=== PATIENT | male | born 2000 | race Caucasian/White ===

== ENCOUNTER 2023-02-12 17:51 | Emergency (ER) | payer OTHER, SELFPAY ==
[2023-02-12 18:00] VITALS: BP 162/84; PULSE 89; RESP 20; TEMP 37; O2SAT 99
--- NOTE | 2023-02-12 18:06 | ED.UPPEXIN ---
HPI - Extremity Injury (Upper) General Chief Complaint: Extremity Injury, Upper Stated Complaint: Swelling in right hand Time Seen by Provider: 02/12/23 18:11 Mode of arrival: ambulatory History of Present Illness HPI narrative: PATIENT PRESENTS WITH INJURY TO HIS RIGHT HAND. PATIENT REPORTS HE PULLED A SPLINTER OUT OF HIS RIGHT RING FINGER YESTERDAY AND PUNTURED HIS FINGER NAIL WITH A NAIL. UP TO DATE ON TDAP. SOME SWELLING AND TENDERNESS TO FINGER NO STREAKING AND NO DRAINAGE. Related Data Allergies Allergy/AdvReac Type Severity Reaction Status Date / Time No Known Allergies Allergy Verified 02/12/23 18:01 Review of Systems Review of Systems: CONSTITUTIONAL: DENIES FEVER, CHILLS, OR SWEATS. EYES: DENIES VISUAL CHANGES, REDNESS, OR DISCHARGE. ENT: DENIES RHINORRHEA, CONGESTION, SORE THROAT, OR OTALGIA. CARDIOVASCULAR: DENIES CHEST PAIN, PALPITATIONS, OR EDEMA. RESPIRATORY: DENIES COUGH OR DYSPNEA. GASTROINTESTINAL: DENIES ABDOMINAL PAIN, NAUSEA, VOMITING, OR DIARRHEA. GENITOURINARY: DENIES DYSURIA OR HEMATURIA. SKIN: DENIES RASH OR ITCHING. MUSCULOSKELETAL: DENIES BACK PAIN, JOINT PAIN, OR MYALGIA. NEUROLOGIC: DENIES HEADACHE, NUMBNESS, OR WEAKNESS. PSYCHIATRIC: DENIES ANXIETY OR DEPRESSION. PMFSH Comments AT TIME OF SIGNATURE, AGREE WITH NURSING PAST MEDICAL, SURGICAL, SOCIAL AND FAMILY HISTORY. THERE IS NO RELEVANT FAMILY HISTORY PERTINENT TO THE PRESENTING COMPLAINT Exam Narrative: GENERAL: WELL-APPEARING, WELL-NOURISHED, AND IN NO ACUTE DISTRESS. HEAD: NORMOCEPHALIC, ATRAUMATIC. EYES: PERRLA AND EOMI. ENT: NARES CLEAR, NO RHINORRHEA OR EPISTAXIS. MUCOUS MEMBRANES MOIST. NECK: SUPPLE. CHEST: CLEAR TO AUSCULTATION. NO RESPIRATORY DISTRESS. HEART: REGULAR RATE AND RHYTHM. NO MURMUR HEARD. NORMAL PERIPHERAL PULSES. ABDOMEN: SOFT, NONTENDER, NONDISTENDED, NORMAL ACTIVE BOWEL SOUNDS. EXTREMITIES: NORMAL RANGE OF MOTION. NO EDEMA.GENERAL: WELL-APPEARING, WELL-NOURISHED, AND IN NO ACUTE DISTRESS. HAND EXAM - SKIN INTACT, NO LACERATION, NO SWELLING, NO ERYTHEMA, NORMAL DIGIT CASCADE WITH FLEXION OF FINGERS, MEDIAN NERVE, ULNAR NERVE, RADIAL NERVE IS INTACT. NORMAL SENSATION OF EACH SIDE OF EACH FINGER, CAN PERFORM `OK? SIGN, `CROSS OVER FINGER TEST OF INDEX AND MIDDLE FINGERS? AND `THUMBS UP? SIGN, NORMAL THUMB OPPOSITION, NO SCISSORING. GOOD CAPILLARY REFILL AND RADIAL PULSE. NORMAL FLEXION AND EXTENSION OF FINGERS AND WRIST. NORMAL SUPINATION AT WRIST. NORMAL FOREARM AND ELBOW EXAM.REDNESS AND IRRITATION TO RIGHT RING FINGER CONSISTENT WITH CELLULLITIS. PUNCTURE WOUND TO RIGHT FINGER NAIL. HEAD: NORMOCEPHALIC, ATRAUMATIC. EYES: PERRLA AND EOMI. ENT: NARES CLEAR, NO RHINORRHEA OR EPISTAXIS. MUCOUS MEMBRANES MOIST. NECK: SUPPLE. CHEST: CLEAR TO AUSCULTATION. NO RESPIRATORY DISTRESS. HEART: REGULAR RATE AND RHYTHM. NO MURMUR HEARD. NORMAL PERIPHERAL PULSES. ABDOMEN: SOFT, NONTENDER, NONDISTENDED, NORMAL ACTIVE BOWEL SOUNDS. EXTREMITIES: NORMAL RANGE OF MOTION. NO EDEMA. SKIN: WARM, DRY, NO RASH. NEURO: NO FOCAL DEFICITS. ALERT AND ORIENTED X3. CAMACHO COMA SCALE EYE OPENING: SPONTANEOUS 4 CAMACHO COMA SCALE MOTOR: OBEYS COMMANDS 6 CAMACHO COMA SCALE VERBAL: ORIENTED 5 CAMACHO COMA SCALE TOTAL 15 SKIN: WARM, DRY, NO RASH. NEURO: NO FOCAL DEFICITS. ALERT AND ORIENTED X3. CAMACHO COMA SCALE EYE OPENING: SPONTANEOUS 4 CAMACHO COMA SCALE MOTOR: OBEYS COMMANDS 6 CAMACHO COMA SCALE VERBAL: ORIENTED 5 CAMACHO COMA SCALE TOTAL 15 Course Course Level of Care: Express Care Visit Vital Signs Vital signs: Vital Signs Temperature 37.0 C 02/12/23 18:00 Pulse Rate 89 02/12/23 18:00 Respiratory Rate 20 02/12/23 18:00 Blood Pressure 162/84 H 02/12/23 18:00 Pulse Oximetry 99 02/12/23 18:00 Oxygen Delivery Room Air 02/12/23 18:00 Temperature 37.0 C 02/12/23 18:00 Pulse Rate 89 02/12/23 18:00 Respiratory Rate 20 02/12/23 18:00 Blood Pressure 162/84 H 02/12/23 18:00 Pulse Oximetry 99 02/12
== END 2023-02-12 18:13 | disposition home or self-care (01) ==
PROVIDERS: Emergency Provider Nurse Practitioner Family
DX: L03.113 Cellulitis of right upper limb (principal)
CPT/HCPCS: 99213; G0463

== ENCOUNTER 2024-10-20 11:51 | Emergency (ER) | payer OTHER, SELFPAY ==
[2024-10-20 11:58] VITALS: BP 144/85; PULSE 82; RESP 20; TEMP 37.1; O2SAT 100
--- NOTE | 2024-10-20 12:05 | ED.EAR ---
HPI - Ear Problem General Chief complaint: Ear Stated complaint: Ear pain History of Present Illness HPI Narrative: Patient presents with right ear pain. Patient denies any fever no body aches no drainage from the ear. Patient states it feels muffled at times and has had no recent ear infections. Related Data Allergies Allergy/AdvReac Type Severity Reaction Status Date / Time No Known Allergies Allergy Verified 02/12/23 18:01 Review of Systems Review of Systems: CONSTITUTIONAL: Denies chills, or sweats. Reports fever and generalized body aches EYES: Denies visual changes, redness, or discharge. ENT: Denies otalgia. Reports nasal congestion runny nose and sore throat CARDIOVASCULAR: Denies chest pain, palpitations, or edema. RESPIRATORY: Denies dyspnea. Reports occasional cough GASTROINTESTINAL: Denies abdominal pain, nausea, vomiting, or diarrhea. GENITOURINARY: Denies dysuria or hematuria. SKIN: Denies rash or itching. MUSCULOSKELETAL: Denies back pain, joint pain, or myalgia. Reports generalized body aches NEUROLOGIC: Denies headache, numbness, or weakness. PSYCHIATRIC: Denies anxiety or depression. Exam Narrative: The patient is a well-developed, well-nourished in no acute distress. SKIN: Skin is warm and dry without erythema, swelling or exudate. There is good turgor. No tenting. HEAD: Atraumatic. Normocephalic. No temporal or scalp tenderness. EYES: Moist and bright. Sclera and conjunctivae normal. No discharge. PERRLA. Extraocular motions intact. Gross visual acuity intact. EARS: Pinna is normal shape and contour. Clear external auditory canals. TM pearly vasquez with good cone of light, no erythema or suppuration. Bilateral cerumen noted no gross hearing deficit. Mild erythema to right canal with bulging to right TM NOSE: pink, moist mucosa with good air movement. Clear rhinorrhea without nasal flaring. Septum midline. Mouth: moist mucous membranes. THROAT; mild erythema noted to posterior oropharynx with moderate postnasal drainage. Without exudate or ulceration.. Uvula midline. Normal movement of soft palate. NECK: Supple and nontender with full range of motion without discomfort. No meningeal signs. LUNGS: Equal and bilateral breath sounds without wheezes, rales or rhonchi. CHEST: The chest wall is without retractions or use of accessory muscles. HEART: Has a regular rate and rhythm without murmur, gallops, click or rub. ABDOMEN: Soft, nontender with positive active bowel sounds. No rebound tenderness. EXTREMITIES: Without cyanosis, clubbing or edema. Equal 2+ distal pulses and 2 second capillary refill noted. NEUROLOGIC: alert, active, . The patient moves all extremities with normal muscle strength. Normal muscle tone is noted. Normal coordination is noted. NO focal neurological findings noted. Course Course Level of Care: Express Care Visit Vital Signs Vital signs: Vital Signs Temperature 37.1 C 10/20/24 11:58 Pulse Rate 82 10/20/24 11:58 Respiratory Rate 20 10/20/24 11:58 Blood Pressure 144/85 H 10/20/24 11:58 Pulse Oximetry 100 10/20/24 11:58 Oxygen Delivery Room Air 10/20/24 11:58 Temperature 37.1 C 10/20/24 11:58 Pulse Rate 82 10/20/24 11:58 Respiratory Rate 20 10/20/24 11:58 Blood Pressure 144/85 H 10/20/24 11:58 Pulse Oximetry 100 10/20/24 11:58 Oxygen Delivery Room Air 10/20/24 11:58 Please EDWARDO schedule a followup visit with your personal physician for further evaluation and treatment. Including recheck and discussion of your blood pressure. If your symptoms persist, change or worsen significantly before you can contact your personal physician then please, without delay, go to the emergency department for further evaluation Medical Decision Making Vital Signs Vital Signs: Vital Signs Temperature 37.1 C 10/20/24 11:58 Pulse Rate 82 10/20/24 11:58 Respiratory Rate 20 10/20/24 11:58 Blood Pressure 144/85 H 10/20/24 11:58 Pulse Oximetry 100 10/20/24 11:58 Oxygen Delivery Room Air 10/20/24 11:58 Temperature 37.1 C 10/20/24 11:58 Pulse Rate 82 10/20/24 11:58 Respiratory Rate 20 10/20/24 11:58 Blood Pressure 144/85 H 10/20/24 11:58 Pulse Oximetry 100 10/20/24 11:58 Oxygen Delivery Room Air 10/20/24 11:58 Please EDWARDO schedule a followup visit with your personal physician for further evaluation and treatment. Including recheck and discussion of your blood pressure. If your symptoms persist, change or worsen significantly before you can contact your personal physician then please, without delay, go to the emergency department for further evaluation Discharge Plan Discharge Clinical Impression: Otitis media Patient Disposition: Home, Self-Care Condition: Stable Instructions: Antibiotic Form Additional Instructions: INUSITIS, Abx Tx, Drink plenty of water (with the goal to keep your urine clear to light yellow) and get plenty of rest (8-9 hours a night).You may try saline rinses (Ellis/Simply Saline/Neti Pot), Nakul's Vaporub, or a humidifier/hot showers for your nose symptoms. You may also try taking an anti-histamine during the day (such as Tracey/Claritin/Zyrtec) and Benadryl at night as dosed on the package regularly for the next 1-2 weeks to help dry passageways to decrease drainage and symptoms. You may try Delsym or Mucinex DM as dosed on the package, or cough drops for your cough. You may try Chloraseptic spray as dosed on the bottle, honey 2-3 tablespoons 2-3 times a day, cough drops/peppermints for your sore throat over the next week. , Discussed with patient if worsening symptoms or worsening pain follow up with primary care physician -If you have any worsening of symptoms or any other concerns please go to the ED immediately. Patient Language: Tongan Prescriptions: New fluticasone propionate [Children's Flonase Allergy Rlf] 50 mcg/actuation spray,suspension 1 spray NASAL Q12H Qty: 9.9 0RF Rx Instructions: administer into each nostril amoxicillin-pot clavulanate 875-125 mg tablet 1 tablet PO Q12H 7 Days Qty: 14 0RF Follow-up/Referrals: PHYSICIAN,REGISTERED APPRAISER [Primary Care Provider] -
== END 2024-10-20 12:12 | disposition home or self-care (01) ==
PROVIDERS: Emergency Provider Nurse Practitioner Family
DX: H66.91 Otitis media, unspecified, right ear (principal)
CPT/HCPCS: 99213; G0463

== ENCOUNTER 2025-03-14 18:14 | Emergency (ER) | payer OTHER, SELFPAY ==
[2025-03-14 18:30] VITALS: BP 149/92; PULSE 84; RESP 20; TEMP 36.7; O2SAT 100
--- NOTE | 2025-03-14 20:17 | ED.GENADULT ---
HPI - General Adult General Chief complaint: Burn/Smoke Inhalation Stated complaint: Sun Burn on Feet/Ankles Swollen Time Seen by Provider: 03/14/25 20:00 Source: patient, RN notes reviewed and old records reviewed Mode of arrival: ambulatory Limitations: no limitations History of Present Illness HPI narrative: 24 year old male who presents to express care with complaints of acute sunburn to the top of his feet, legs and feet which occurred 2 days ago when he was fishing in [place]. Patient reports that he noted yesterday that he feet and lower legs seemed to be swelling and they are worse today. He states that he has been using Aloe ointment on his sunburn. Patient reports no nausea or vomiting, no headache or any dizziness, has not noted any fevers. MD complaint: acute sunburn with some swelling to legs and feet Onset (ago): day(s) (day 3 of symptoms) Location: face, left, right and lower extremity (tops of feet) Severity: moderate Severity scale (1-10): 3 Quality: aching and dull Pain Consistency: constant Treatments prior to arrival: other (aloe ointment) Related Data Home Medications ?Medication ?Instructions ?Recorded ?Confirmed ?Last Taken ?Type No Home Medications 03/14/25 03/14/25 Unknown History Allergies Allergy/AdvReac Type Severity Reaction Status Date / Time No Known Allergies Allergy Verified 03/14/25 18:59 Review of Systems Review of Systems: CONSTITUTIONAL: Denies fever, chills, or sweats. EYES: Denies visual changes, redness, or discharge. ENT: Denies rhinorrhea, congestion, sore throat, or otalgia. CARDIOVASCULAR: Denies chest pain, palpitations, or edema. RESPIRATORY: Denies cough or dyspnea. GASTROINTESTINAL: Denies abdominal pain, nausea, vomiting, or diarrhea. GENITOURINARY: Denies dysuria or hematuria. SKIN: Denies rash or itching. Positive for sunburn to face legs and tops of feet after fishing on Tuesday concerned with swelling to legs and tops of feet for past 2 days. No blisters noted to skin but red in color on legs, face and tops of feet with warmth to skin noted MUSCULOSKELETAL: Denies back pain, joint pain, or myalgia. NEUROLOGIC: Denies headache, numbness, or weakness. PSYCHIATRIC: Denies anxiety or depression. All systems reviewed & are unremarkable except as noted in HPI and below PMFSH Past Medical History Medical History (Updated 03/17/25 @ 19:37 by Nancy Perez NP) Cellulitis of index finger Ear infection Social History Social History (Updated 03/17/25 @ 19:37 by Nancy Perez NP) Smoking status: Current every day smoker Tobacco type: e-cigarettes/vaping Alcohol use details: social Substance use type: does not use Living arrangements: with family Gender identity (if verbalized by the patient): Male Comments At time of signature, agree with nursing past medical, surgical, social and family history. There is no relevant family history pertinent to the presenting complaint Exam Narrative: GENERAL: Well-appearing, well-nourished, and in no acute distress. HEAD: Normocephalic, atraumatic. EYES: PERRLA and EOMI. ENT: Nares clear, no rhinorrhea or epistaxis. Mucous membranes moist.TM's normal throat pink with no swelling NECK: Supple. no lymphadenopathy CHEST: Clear to auscultation. No respiratory distress. SAO2 100% on room air HEART: Regular rate and rhythm. No murmur heard. Normal peripheral pulses. ABDOMEN: Soft, nontender, nondistended, normal active bowel sounds.no nausea or vomiting EXTREMITIES: Normal range of motion. trace edema to lower legs and to feet nonpitting with strong pedal pulses present, SKIN: Warm, dry, no rash. Positive for sunburn 1st degree to face and to lower extremities and top of feet with dull aching pain. NEURO: No focal deficits. Alert and oriented, denies any dizziness or any headache pain Course Course Emergency Course: Patient is aware of diagnosis, understands and agrees to treatment plan.? Anticipatory guidance given.? Patient agrees to follow-up as directed and is aware of reasons to seek care at the emergency department. Portions of this record may have been created with voice recognition software Level of Care: Express Care Visit Vital Signs Vital signs: Vital Signs Temperature 36.7 C 03/14/25 18:30 Pulse Rate 84 03/14/25 18:30 Respiratory Rate 20 03/14/25 18:30 Blood Pressure 149/92 H 03/14/25 18:30 Pulse Oximetry 100 03/14/25 18:30 Oxygen Delivery Room Air 03/14/25 18:30 Temperature 36.7 C 03/14/25 18:30 Pulse Rate 84 03/14/25 18:30 Respiratory Rate 20 03/14/25 18:30 Blood Pressure 149/92 H 03/14/25 18:30 Pulse Oximetry 100 03/14/25 18:30 Oxygen Delivery Room Air 03/14/25 18:30 Reviewed Medical Decision Making MDM Narrative Medical decision making narrative: Exam findings and imaging show no acute concerns or changes; patient is non-toxic appearing and is in no distress.? Patient is appropriate for outpatient treatment and follow-up Differential Diagnosis Differential Diagnosis: acute sunburn, swelling to lower legs and feet with strong pulses present, pain to sunburn tissue Medical Records Medical records reviewed: Yes I reviewed the external patient's medical records. Vital Signs Vital Signs: Vital Signs Temperature 36.7 C 03/14/25 18:30 Pulse Rate 84 03/14/25 18:30 Respiratory Rate 20 03/14/25 18:30 Blood Pressure 149/92 H 03/14/25 18:30 Pulse Oximetry 100 03/14/25 18:30 Oxygen Delivery Room Air 03/14/25 18:30 Temperature 36.7 C 03/14/25 18:30 Pulse Rate 84 03/14/25 18:30 Respiratory Rate 20 03/14/25 18:30 Blood Pressure 149/92 H 03/14/25 18:30 Pulse Oximetry 100 03/14/25 18:30 Oxygen Delivery Room Air 03/14/25 18:30 reviewed Critical Care Time Critical Care Time Critical Care Time: No Discharge Plan Discharge Clinical Impression: Sunburn Patient Disposition: Home Condition: Stable Instructions: Antibiotic Form, Sunburn (ED) Additional Instructions: Apply lidocaine cream/spray to sunburn BID to TID as needed watch for increasing infection--redness, swelling, drainage Alternate Tylenol and Ibuprofen for any fever or pain follow up with PCP in 7-10 days for a wound check recheck if develop fever, chills, increasing symptom Go to the ER if your symptoms become worse of if ANY new symptoms develop If your symptoms persist, change or worsen significantly before you can contact your personal physician then please, without delay, go to the emergency department for further evaluation. Follow-up with PCP in 7-10 days or sooner if needed Follow up with PCP soon in regards to your blood pressure which is elevated above threshold for referral. Blood pressure above 120/80 may indicate pre-hypertension. 149/92 avoid any tight constrictive clothing or socks tepid showers Patient Language: Malay Prescriptions: No Action No Home Medications Follow-up/Referrals: PHYSICIAN,CHOPPING MACHINE OPERATOR [Primary Care Provider] - Time of Disposition: 20:24 Quality Franklin Coma Scale Eyes: Open Verbal: Oriented and Alert Motor: Follows Commands Uri Coma Total Score: 15
== END 2025-03-14 20:25 | disposition home or self-care (01) ==
PROVIDERS: Emergency Provider Registered Nurse
DX: L55.0 Sunburn of first degree (principal); F17.290 Nicotine dependence, other tobacco product, uncomplicated
CPT/HCPCS: 99211; G0463